=== PATIENT | male | born 1985 | race Caucasian/White ===

== ENCOUNTER 2017-04-21 20:55 | Emergency (ER) | payer OTHER | END 2017-04-21 23:11 | disposition home or self-care (01) | LOC: FER 20:55 | DX: S01.511A Laceration without foreign body of lip, initial encounter (principal); F17.210 Nicotine dependence, cigarettes, uncomplicated; Z23 Encounter for immunization; Y04.0XXA Assault by unarmed brawl or fight, initial encounter; Y92.149 Unspecified place in prison as the place of occurrence of the external cause | CPT/HCPCS: 90471; 90715; J1885 ==

== ENCOUNTER 2020-11-04 17:50 | Emergency (ER) | payer OTHER ==
[~2020-11-04 17:50] MED LIST: K-DUR20 MEQ PO; OXY-IR 5MG5 MG PO; PEPCID AC20 MG PO; ULTRAM50 MG PO
== END 2020-11-04 22:30 ==
LOC: FER 17:50
DX: S01.111A Laceration without foreign body of right eyelid and periocular area, initial encounter (principal); R68.84 Jaw pain; M54.2 Cervicalgia; F17.210 Nicotine dependence, cigarettes, uncomplicated; Z88.0 Allergy status to penicillin; Z88.1 Allergy status to other antibiotic agents; Y04.2XXA Assault by strike against or bumped into by another person, initial encounter; Y92.149 Unspecified place in prison as the place of occurrence of the external cause
CPT/HCPCS: 70450; 70486; 72125

== ENCOUNTER 2021-01-17 19:47 | Emergency (ER) | payer OTHER | END 2021-01-18 00:07 | disposition home or self-care (01) | LOC: FER 19:47 | DX: S61.512A Laceration without foreign body of left wrist, initial encounter (principal); F17.200 Nicotine dependence, unspecified, uncomplicated; W26.0XXA Contact with knife, initial encounter; Y92.89 Other specified places as the place of occurrence of the external cause; Y99.0 Civilian activity done for income or pay ==

== ENCOUNTER 2021-05-09 16:39 | Emergency (ER) | payer OTHER ==
[2021-05-09 18:32] LABS: BASOPHIL 0.3 % (0-2); EOSINOPHIL 1.5 % (0-5); HCT 43.2 % (42.0-52.0); HGB 14.2 g/dl (13.2-18.0); LYMPHOCYTE 41.6 % (15-48); MCH 27.5 pg (25.0-31.0); MCHC 32.9 g/dL (32.0-36.0); MCV 83.7 fL (78.0-100.0); MPV 11.4 fL (6.0-9.5); NEUTROPHIL 48.4 % (41-80); NRBC 0; PLT 169 K/uL (150-400); RBC 5.16 M/uL (4.70-6.00); RDW 13.2 % (11.5-14.0); WBC 9.7 K/uL (4.0-10.5)
[2021-05-09 19:31] LABS: CREATININE 0.76 mg/dL (0.67-1.17); POTASSIUM 3.8 mmol/L (3.5-5.1)
== END 2021-05-09 19:26 | disposition left against medical advice (07) ==
LOC: FER 16:39
PROVIDERS: Nurse Practitioner Family
DX: R07.1 Chest pain on breathing (principal); Z88.1 Allergy status to other antibiotic agents; Z88.0 Allergy status to penicillin; Z53.8 Procedure and treatment not carried out for other reasons
CPT/HCPCS: 36415; 71045; 80048; 85025; J7030